=== PATIENT | male | born 1950 | race Caucasian/White ===

== ENCOUNTER → 2018-08-11 | Outpatient (CLI) | payer MEDICARE ==
[2018-08-11 14:22] LABS: Basophils # (A) 0.1 k/uL (0-0.2); Basophils % (A) 1 %; Eosinophils # (A) 0.2 k/uL (0-0.7); Eosinophils % (A) 3 %; HCT 47.6 % (39.0-53.0); HGB 16.1 gm/dL (13.0-17.5); Lymphocytes # (A) 1.8 k/uL (1.0-4.8); Lymphocytes % (A) 20 %; MCH 27.7 pg (25.0-35.0); MCHC 33.9 g/dL (31.0-37.0); MCV 81.7 fL (80.0-100.0); Monocytes # (A) 0.5 k/uL (0-1.0); Monocytes % (A) 5 %; Neutrophils # (A) 6.4 k/uL (1.3-7.7); Neutrophils % (A) 70 %; Platelet Count 358 k/uL (150-450); RBC 5.82 m/uL (4.30-5.90); RDW 14.3 % (11.5-15.5); WBC 9.2 k/uL (3.8-10.6)
--- NOTE | 2018-08-11 14:22 | XR ---
EXAMINATION TYPE: XR chest 2V DATE OF EXAM: 08/11/2018 COMPARISON: NONE HISTORY: Preadmission testing, presurgical TECHNIQUE: Frontal and lateral views of the chest are obtained. FINDINGS: There is no focal air space opacity, pleural effusion, or pneumothorax seen. The cardiac silhouette size is within normal limits. Thoracic spondylosis is noted. Prominent lung volume may be indicative of underlying COPD. The osseous structures are intact. IMPRESSION: No acute cardiopulmonary process.
[2018-08-11 14:27] LABS: Appearance,Urine Clear (Clear); Bacteria,Urine Rare /hpf; Bilirubin,Urine Negative (Negative); Blood,Urine Moderate (Negative); Color,Urine Yellow; Glucose,Urine (UA) Negative (Negative); Hyaline Casts,Urine 6 /lpf (0-2); Ketones,Urine Negative (Negative); Leukocyte Esterase,Urine Negative (Negative); Mucus,Urine Rare /hpf; Nitrite,Urine Negative (Negative); Protein,Urine Negative (Negative); RBC,Urine 22 /hpf (0-5); Specific Gravity,Urine 1.018 (1.001-1.035); Squamous Epithelial Cell,Urine 3 /hpf (0-4); Urobilinogen,Urine <2.0 mg/dL (<2.0); WBC,Urine 7 /hpf (0-5)
[2018-08-11 14:41] LABS: Calcium 10.3 mg/dL (8.4-10.2); Potassium 5.5 mmol/L (3.5-5.1)
== END | disposition home or self-care (01) ==
LOC: LABPAT 11:42
PROVIDERS: ATTEND Anesthesiology
DX: Z01.818 Encounter for other preprocedural examination (principal); Z01.812 Encounter for preprocedural laboratory examination; N20.0 Calculus of kidney; R31.29 Other microscopic hematuria
CPT/HCPCS: 71046; 80048; 81001; 85025; 87086; 93005

== ENCOUNTER 2018-08-20 07:33 | Day surgery (SDC) | payer BC, MEDICARE ==
--- NOTE | 2018-08-19 12:22 | P.GSHP ---
History of Present Illness H&P Date: 08/19/18 67y o male with a large, 2.5 cm left renal pelvic stone with pain who comes for a left pcnl Risks complicztions and alternatives have been discussed. - Constitutional Constitutional: Denies chills, Denies fever - EENT Eyes: denies blurred vision, denies pain Ears, nose, mouth and throat: Denies headache, Denies sore throat - Cardiovascular Cardiovascular: Denies chest pain, Denies shortness of breath - Respiratory Respiratory: Denies cough, Denies 7 - Gastrointestinal Gastrointestinal: Denies abdominal pain, Denies diarrhea, Denies nausea, Denies vomiting - Genitourinary (Female) Genitourinary: Denies dysuria, Denies hematuria - Genitourinary (Male) Genitourinary: Denies dysuria, Denies hematuria - Musculoskeletal Musculoskeletal: Denies myalgias - Integumentary Integumentary: Denies pruritus, Denies rash - Neurological Neurological: Denies numbness, Denies weakness - Psychiatric Psychiatric: Denies anxiety, Denies depression - Endocrine Endocrine: Denies fatigue, Denies weight change Past Medical History Past Medical History: Renal Disease Additional Past Medical History / Comment(s): kidney stones, neuropathy feet History of Any Multi-Drug Resistant Organisms: None Reported MDRO Source:: nose Past Surgical History: Hernia Repair Additional Past Surgical History / Comment(s): 1- hernia repair with mesh, 2 & 3 hernia repair without mesh and then repaired again. Past Anesthesia/Blood Transfusion Reactions: No Reported Reaction Smoking Status: Former smoker - Past Family History Father Family Medical History: Cancer Additional Family Medical History / Comment(s): lung Mother Family Medical History: Cancer Additional Family Medical History / Comment(s): lung Brother(s) Family Medical History: Cancer Additional Family Medical History / Comment(s): lung Medications and Allergies Home Medications Medication Instructions Recorded Confirmed Type Ibuprofen [Motrin] 800 mg PO TID 08/08/18 08/08/18 History Allergies Allergy/AdvReac Type Severity Reaction Status Date / Time No Known Allergies Allergy Verified 08/08/18 09:14 Surgical - Exam - General well developed, well nourished, no distress - Eyes PERRL - ENT no hearing loss - Neck trachea midline - Respiratory normal expansion, normal respiratory effort - Cardiovascular Rhythm: regular - Abdomen Abdomen: soft, non tender - Genitourinary normal penis with no external lesions, testicles present - Integumentary no rash, no growths - Neurologic normal coordination, normal sensation - Musculoskeletal normal gait, normal posture - Psychiatric oriented to time, oriented to person, oriented to place, speech is normal, memory intact Results - Imaging CT scan - abdomen: report reviewed, image reviewed CT scan - pelvis: report reviewed, image reviewed Assessment and Plan Assessment: Impression: Left renal stone large, small as right renal stone Plan: PCNL left large
[~2018-08-20 07:33] MED LIST: LIDOCAINE 1% 20 ML VIAL (10MG/ML) FOR IV START INTRADERMA PRN; ONDANSETRON 4 MG/2 ML VIAL IVP ONE; ceFAZolin IN SWFI 2 GM/20 ML SYRINGE IVP ONE
--- NOTE | 2018-08-20 08:16 | XR ---
EXAMINATION TYPE: XR KUB DATE OF EXAM: 08/20/2018 8:08 AM CLINICAL HISTORY: Presurgical study. TECHNIQUE: Two Upright KUB images of the abdomen are obtained. COMPARISON: IVP May 31, 2010. FINDINGS: There are 2 large left renal calculi measuring up to 23 mm long axis likely within left doris al pelvis due to medial location. There are 2-3 right-sided renal calculi measuring up to 10 mm long axis. Numerous coils ventral wall hernia repair surgery are redemonstrated extending over the pelvis. There is multilevel spurring in the spine. There is overall nonobstructive bowel gas pattern. There is mod erate narrowing and acetabular spurring in both hips. IMPRESSION: Bilateral nephrolithiasis as detailed above.
[2018-08-20] MEDS: LACTATED RINGERS 1,000 ML IV SCH (08:20)
[2018-08-20] MEDS ORDERED: fentaNYL (PF) 50 MCG/ML 2 ML AMP ONE (09:18)
[2018-08-20] MEDS ORDERED: MIDAZOLAM 2 MG/2 ML VIAL ONE (09:18)
[2018-08-20] MEDS ORDERED: PROPOFOL 10 MG/ML 20 ML VIAL IV ONE (09:18)
[2018-08-20] MEDS ORDERED: PHENYLEPHRINE-0.9% NACL SYG 1 MG/10 ML SYRINGE ONE (09:18)
[2018-08-20] MEDS ORDERED: LIDOCAINE 1% INJ 10MG/ML (20 ML MDV) ONE (09:18)
[2018-08-20] MEDS ORDERED: ROCURONIUM BROMIDE 10 MG/ML 10 ML VIAL IV ONE (09:18)
[2018-08-20] MEDS ORDERED: IOPAMIDOL-370 50ML BTL IRRIGATION ONE (10:14)
[2018-08-20] MEDS ORDERED: LACTATED RINGERS 1,000 ML IV ONE (11:10)
[2018-08-20] MEDS ORDERED: ACETAMINOPHEN TAB 325 MG TAB PO PRN (11:16)
[2018-08-20] MEDS ORDERED: MAG HYDROX/AL HYDROX/SIMETH 30 ML CUP PO PRN (11:16)
[2018-08-20] MEDS ORDERED: ONDANSETRON 4 MG/2 ML VIAL IVP PRN (11:16)
[2018-08-20] MEDS ORDERED: NALOXONE 0.4 MG/ML 1 ML VIAL IV PRN (11:18)
[2018-08-20] MEDS ORDERED: HYDROMORPHONE (PF) 10 MG in SODIUM CHLORIDE 0.9% 49 ML IV PRN (11:18)
--- NOTE | 2018-08-20 11:27 | P.OP ---
Date of Procedure: 08/20/18 Preoperative Diagnosis: left renal stones, large Postoperative Diagnosis: same Procedure(s) Performed: cystoscopy, placement of occluding balloon catheter left, percutaneous nephrostomy (Dr. costa), percutaneous nephrostolithotomy at ultrasound, placement of 10 J nephrostomy Anesthesia: CASSANDRA Surgeon: Santiago Pena Estimated Blood Loss (ml): 100 Pathology: other Condition: stable Disposition: PACU Indications for Procedure: the patient is 67. He has a large volume of kidney stones in the left renal pelvis 2.1 cm and 12 mm. He comes for percutaneous nephrostolithotomy risk complications alternatives have been discussed Description of Procedure: the patient is brought to the operating suite. He is given a general endotracheal anesthesia on the transport gurney. Rolls were placed under his hips. He's placed in a frog position with a sterile prep and drape. Cystoscopy a Foroblique lens and 22-Bermudian sheath identifies a normal urethra. Prostate is not obstructing. The left ureteral orifice is intubated with a 5-Bermudian occluding balloon catheter passed up into the renal pelvis. The cystoscope was removed. A 16 Zepeda catheters introduced and secured to the ureteral catheter. The patient is placed in a prone position with care to airways and extremities. He is prepped and draped sterilely. Dr. Costa of radiology performed percutaneous access to a lower pole posterior calyx. The track is dilated to 30-Bermudian. I introduced a 30-Bermudian working sheath. I remove clot with the rigid endoscope and identify the smaller the 2 stones. He is broken into 2 pieces with the ultrasound wand and the pieces were grasped and removed. She has a bifid pelvis and in the eventually able to see the tip of the stone up in the upper portion of the renal pelvis. I slowly am able to grind on this and eventually pull it down in the lower portion of the renal pelvis. I grind and remove her basket the larger fragments . the stone appears to be removed as visually apparent and fluoroscopically apparent. I passed the flexible cystoscope through the collecting system and see no remaining stone. Over the working wire a 10-Bermudian J nephrostomy tube was placed in the renal pelvis. It is secured to the skin with 2-0 silk. The working sheath is removed. The patient is awake and returned recovery room good condition. Blood loss is approximately 100 mL. Due to pain and blood loss issues I will observe the patient in the hospital overnight
[2018-08-20] MEDS: HYDROmorphone 0.5 MG/0.5 ML SYRINGE IVP PRN ×4 (11:34→11:58)
[2018-08-20 12:31] VITALS: BMI 31.8
[2018-08-20] MEDS: DEXTROSE 5%-0.45% NACL 1,000 ML IV SCH ×2 (12:44→21:04)
--- NOTE | 2018-08-20 12:45 | FL ---
EXAMINATION TYPE: FL Perc Nephrostomy Dilat Ext Tract DATE OF EXAM: 08/20/2018 COMPARISON: NONE HISTORY: Renal stone Procedure had been discussed with the patient by Dr. Pena, risks, benefits, alternatives, were discussed and any questions were answered. Informed consent was obtained. The patient was in a semiprone position prepped and draped on the OR table in the usual sterile fashion. Utilizing a 15 cm length Chiba needle a single pass was made into a lower pole posterior calyx under fluoroscopic guidance. An 0.018 guidewire is passed through the needle and there was placement of a 6-Slovenian catheter sheath system. There was conversion to a 0.035 system was performed with passage of a guidewire into the ureter utilizing a directional catheter. A second safety wire was placed. Remaining portion of procedure performed by . Approximately 1 minute 59 seconds of fluoroscopy was provided. One image provided. IMPRESSION: 1. Successful intraoperative left nephrostomy prior to nephrolithotomy. ZANDRA
[2018-08-20] MEDS: HYDROcodone/APAP 5-325MG 1 EACH TAB PO PRN (17:51)
[2018-08-21] MEDS: HYDROcodone/APAP 5-325MG 1 EACH TAB PO PRN ×2 (04:58→14:38)
[2018-08-21] MEDS: DEXTROSE 5%-0.45% NACL 1,000 ML IV SCH ×2 (05:03→14:39)
[2018-08-21] MEDS: LACTATED RINGERS 1,000 ML IV SCH (06:17)
--- NOTE | 2018-08-21 06:41 | P.PN ---
Subjective Progress Note Date: 08/21/18 The patient is in his first postoperative day from a left percutaneous nephrostolithotomy. He had a lot of pain overnight and continue with some discomfort. His urine is clear in the Zepeda. There is some blood and little drainage from the nephrostomy tube. His abdomen was soft but there is some discomfort. Due to the persistent pain we will probably observe him again today. He is encouraged to ambulate and continue with deep breathing. Objective - Vital Signs Vital signs: Vital Signs Temp 98.5 F 08/21/18 02:16 Pulse 86 08/21/18 02:16 Resp 20 08/21/18 02:16 BP 134/84 08/21/18 02:16 Pulse Ox 96 08/21/18 02:16 Intake & Output 08/20/18 08/20/18 08/21/18 06:59 18:59 06:59 Intake Total 1300 600 Output Total 980 650 Balance 320 -50 Intake: IV 1300 Oral 600 Output: Drainage 0 Left Lower Back 0 Urine 950 650 Estimated Blood Loss 30 Other: Voiding Method Indwelling Catheter Indwelling Catheter # Voids 3 1 - Labs CBC & Chem 7: 08/20/18 08:25
[2018-08-21 13:13] VITALS: RESP 18
[2018-08-21] MEDS: DOCUSATE 100 MG CAP PO SCH (21:58)
[2018-08-22 00:27] VITALS: PULSE 89
--- NOTE | 2018-08-22 07:09 | P.DS ---
Providers Attending physician: Santiago Pena Primary care physician: [place] Hospital Course: The patient was brought to the hospital on 08/20/2018 for left percutaneous nephrostolithotomy. The stone was removed completely. In 08/21/2018 he was still having too much pain to be discharged home. Pain improved. The nephrostomy tube is now draining appropriately. He is voiding without difficulty. He is ready for discharge home today 08/22/2018. He'll be discharged home with the nephrostomy tube. He'll follow-up in the office on Saturday for nephrostomy tube removal. A small prescription of [place] will be given. Postoperative instructions of been given. He'll be instructed in catheter care. His condition is good. Patient Condition at Discharge: Good Plan - Discharge Summary Discharge Rx Participant: No New Discharge Prescriptions: New HYDROcodone/APAP 5-325MG [Berwick 5-325] 1 tab PO Q4HR PRN #10 tab PRN Reason: Pain No Action Ibuprofen [Motrin] 800 mg PO TID HYDROcodone/APAP 5-325MG [[place] 5-325] 1 tab PO TID PRN PRN Reason: Pain Discharge Medication List Ibuprofen [Motrin] 800 mg PO TID 08/08/18 [History] HYDROcodone/APAP 5-325MG [[place]wick 5-325] 1 tab PO TID PRN 08/20/18 [History] HYDROcodone/APAP 5-325MG [Berwick 5-325] 1 tab PO Q4HR PRN #10 tab 08/22/18 [Rx] Follow up Appointment(s)/Referral(s): Santiago Pena MD [STAFF PHYSICIAN] - 09/01/18 (for nephrostomy tube removal) Discharge Disposition: HOME SELF-CARE
[2018-08-22] MEDS: DEXTROSE 5%-0.45% NACL 1,000 ML IV SCH (07:31)
[2018-08-22] MEDS: DOCUSATE 100 MG CAP PO SCH (07:35)
[2018-08-22 07:53] VITALS: BP 136/78; TEMP 98.7
[2018-08-22] MEDS: HYDROcodone/APAP 5-325MG 1 EACH TAB PO PRN (08:04)
== END 2018-08-22 11:05 | disposition home or self-care (01) ==
LOC: OR 07:33 → EDSTATUS 09:00 → 4SSUR 11:02 → OR 08-22 11:05
PROVIDERS: ATTEND Urology
DX: N20.0 Calculus of kidney (principal); Z79.1 Long term (current) use of non-steroidal anti-inflammatories (NSAID); Z79.891 Long term (current) use of opiate analgesic; G89.18 Other acute postprocedural pain
CPT/HCPCS: 52344; 50437; 84132; 82365; 74018; C1769 ×4; C2628; C1729 ×2; C1894; J2250; J2405; J2001; J3010; J2370; J2704; J1170 ×2; J0690; Q9967; 50432; 86850; 86900; 86901

== ENCOUNTER → 2019-01-28 | Outpatient (CLI) | payer MEDICARE ==
--- NOTE | 2019-01-28 15:14 | XR ---
KUB HISTORY: Right-sided kidney stones Frontal KUB submitted on 2 images correlated prior exam 08/20/2018 The calcifications overlying the left kidney are no longer seen. Right-sided kidney stones persists, lower pole calculus measures 11 mm, midpole calculus measures 1 cm. There are overlying surgical coil s present. Overlying bowel gas may obscure detail. No evident pneumoperitoneum or bowel obstruction. Calcification in the right hemipelvis is stable. There may be some ankylosis of the sacroiliac joints , degenerative disc changes are present in the visualized spine. IMPRESSION: Right-sided nephrolithiasis.
== END | disposition home or self-care (01) ==
LOC: RADXRMAIN 12:01
PROVIDERS: ATTEND Urology
DX: N20.0 Calculus of kidney (principal)
CPT/HCPCS: 74018

== ENCOUNTER → 2019-03-18 | Outpatient (CLI) | payer MEDICARE ==
--- NOTE | 2019-03-18 15:49 | XR ---
EXAMINATION TYPE: XR KUB DATE OF EXAM: 03/18/2019 3:43 PM CLINICAL HISTORY: Right-sided nephrolithiasis. TECHNIQUE: Single supine KUB image of the abdomen is obtained. COMPARISON: 01/28/2019. FINDINGS: The previously seen 1.1 cm and 1.0 cm renal calculi are no longer evident. There are puncta te possible calculi (up to 4 in number) overlying the right renal shadow however colonic debris obscu res visualization. Punctate densities could be within the colonic lumen. Evidence of prior hernia rep air. No dilated large or small bowel. Moderate degenerative change of the spine and hips. No new calc ifications in the pelvis. IMPRESSION: 1. The previously seen 1.0 and 1.1 cm right renal calculi are no longer present. Up to 4 possible pun ctate right renal calculi, obscured by colonic debris. 2. No new calculi within the pelvis or overlying the left renal shadow.
--- NOTE | 2019-03-19 07:16 | US ---
EXAMINATION TYPE: US kidneys/renal and bladder DATE OF EXAM: 03/18/2019 COMPARISON: NONE CLINICAL HISTORY: N20.0 Calculus of kidney. Hx of kidney stones. EXAM MEASUREMENTS: Right Kidney: 10.6 x 4.8 x 4.7 cm Left Kidney: 11.4 x 4.6 x 3.9 cm Right Kidney: Echogenic foci seen without shadowing. Left Kidney: No hydronephrosis or masses seen Bladder: Not fully distended. Bilateral Jets seen: Yes There is no evidence for hydronephrosis at this point in time. No masses are identified. The urinary bladder is anechoic. Bilateral ureteral jets are seen. IMPRESSION: Nonobstructing right-sided nephrolithiasis. Otherwise unremarkable study.
== END | disposition home or self-care (01) ==
LOC: RADUSWWP 15:21
PROVIDERS: ATTEND Urology
DX: N20.0 Calculus of kidney (principal)
CPT/HCPCS: 74018; 76770

== ENCOUNTER → 2019-05-14 | Outpatient (CLI) | payer MEDICARE ==
--- NOTE | 2019-05-14 12:51 | XR ---
EXAMINATION TYPE: XR abdomen 1V DATE OF EXAM: 05/14/2019 12:27 PM CLINICAL HISTORY: Nephrolithiasis TECHNIQUE: Single supine KUB image of the abdomen is obtained. COMPARISON: 03/18/2019. FINDINGS: Questionable calculi overlie the expected lower pole of the right kidney. Kidneys are partially obscu red by bowel. No calculi that are radiopaque are seen on the left. Ventral hernia repair has been per formed. Moderate degenerative change of the spine and hips. Stable phleboliths within the pelvis at t he right ischial spine. No dilated large or small bowel IMPRESSION: No new calculi are seen radiographically. Stable phlebolith within the right hemipelvis a nd subtle possible punctate calculi overlying the right renal shadow.
== END | disposition home or self-care (01) ==
LOC: RADXRMAIN 11:44
PROVIDERS: ATTEND Urology
DX: I87.8 Other specified disorders of veins (principal)
CPT/HCPCS: 74018

== ENCOUNTER → 2020-02-02 | Outpatient (CLI) | payer MEDICARE ==
[2020-02-02 16:28] LABS: African American GFR (CKD) >90 (>60 ml/min/1.73 sqM); Blood Urea Nitrogen 19 mg/dL (9-20); Non-African American GFR(CKD) 89 (>60 ml/min/1.73 sqM)
--- NOTE | 2020-02-02 21:40 | CT ---
EXAMINATION TYPE: CT abdomen pelvis w con DATE OF EXAM: 02/02/2020 COMPARISON: None. HISTORY: Fatty liver, AAA CT DLP: 1994.7 mGycm, Automated Exposure Control for Dose Reduction was Utilized. CONTRAST: CT scan of the abdomen and pelvis is performed with oral and with IV Contrast, patient injected with 100 mL of Isovue 300. FINDINGS: LUNG BASES: No significant abnormality is appreciated. LIVER/GB: Liver is heterogeneously hypodense consistent with diffuse fatty infiltration. There is 1.2 cm hyperdense round lesion anterior left hepatic lobe with surrounding hypodensity. Etiology uncerta in. Favor benign, Possible flash filling hemangioma. PANCREAS: No significant abnormality is seen. SPLEEN: No significant abnormality is seen. ADRENALS: No significant abnormality is seen. KIDNEYS: Symmetric cortical medullary uptake and excretion without hydronephrosis seen bilaterally. BOWEL: Oral contrast reaches level of the mid ileum. No suspicious small or large bowel dilatation. N ormal-appearing appendix arising from cecum in the right lower quadrant and upper pelvis. Diverticula in the sigmoid colon of the left pelvis. No CT evidence for acute diverticulitis. PROSTATE/SEMINAL VESICLES: Mildly enlarged prostate gland bulging on bladder base consistent with BPH . LYMPH NODES: No greater than 1cm abdominal or pelvic lymph nodes are appreciated. OSSEOUS STRUCTURES: Moderate multilevel anterior and lateral spurring of the visualized spine. Multil evel facet arthropathy mid to lower lumbar spine. OTHER: Surgical coils anterior left pelvis from prior inguinal hernia repair surgery. Recurrent ingui nal hernia. Additional coils from ventral hernia repair surgery or level of the umbilicus. No recurre nt ventral wall hernia. There is moderate peripheral noncalcified plaque in the abdominal aorta which is aneurysmal measuring up to 5.2 cm AP diameter axial image 34 x 4.6 cm transversely at this level. Slight focal aneurysm t o distal left common iliac artery up to 2.5 cm diameter axial image 48. IMPRESSION: 1. Moderate peripheral noncalcified plaque in aneurysmal abdominal aorta measuring up to 5.2 cm AP di ameter. At minimum 3-6 month follow-up imaging monitoring is advised. 2. Confirmation of diffuse fatty infiltration of liver. Nonspecific 1.2 cm left hepatic hypodense les ion favoring benign flash filling hemangioma.
== END | disposition home or self-care (01) ==
LOC: RADCTMAIN 15:49
PROVIDERS: ATTEND Family Medicine
DX: I71.4 Abdominal aortic aneurysm, without rupture (principal); K76.0 Fatty (change of) liver, not elsewhere classified
CPT/HCPCS: 82565; 84520; 74177; 36415; Q9967

== ENCOUNTER → 2020-12-14 | Outpatient (CLI) | payer MEDICARE ==
[2020-12-14 17:17] LABS: African American GFR (CKD) >90 (>60 ml/min/1.73 sqM); Blood Urea Nitrogen 23 mg/dL (9-20); Non-African American GFR(CKD) 87 (>60 ml/min/1.73 sqM)
--- NOTE | 2020-12-15 06:29 | CT ---
EXAMINATION TYPE: CT abdomen pelvis w con DATE OF EXAM: 12/14/2020 COMPARISON: CT abdomen and pelvis February 02, 2020 HISTORY: aortic aneurysm CT DLP: 1724 mGycm, Automated Exposure Control for Dose Reduction was Utilized. CONTRAST: CT scan of the abdomen and pelvis is performed with oral and with IV Contrast, patient injected with 100 mL of Isovue 300. FINDINGS: LUNG BASES: No significant abnormality is appreciated. LIVER/GB: Liver is heterogeneously hypodense consistent with diffuse fatty infiltration. There is 1.2 cm hyperdense round lesion anterior left hepatic lobe with surrounding hypodensity. Etiology uncerta in. Favor benign, Possible flash filling hemangioma. No significant change from prior. PANCREAS: Mild to moderate generalized atrophy at level of pancreatic head redemonstrated. SPLEEN: No significant abnormality is seen. ADRENALS: No significant abnormality is seen. KIDNEYS: Symmetric cortical medullary uptake and excretion without hydronephrosis seen bilaterally. S ome cortical thinning bilaterally redemonstrated. BOWEL: Oral contrast does not reach level of terminal ileum making evaluation of distal bowel subopti mal. No suspicious small or large bowel dilatation. Normal-appearing appendix arising from cecum in t he right lower quadrant and upper pelvis. Diverticula in the sigmoid colon of the left pelvis. Mild t o moderate ill-defined fluid and fat stranding at this level suspicious for acute diverticulitis near axial image 67. PROSTATE/SEMINAL VESICLES: Mildly enlarged prostate gland bulging on bladder base consistent with BPH . LYMPH NODES: No greater than 1cm abdominal or pelvic lymph nodes are appreciated. OSSEOUS STRUCTURES: Moderate multilevel anterior and lateral spurring of the visualized spine. Multil evel facet arthropathy mid to lower lumbar spine. OTHER: Surgical coils anterior left pelvis from prior inguinal hernia repair surgery. Stable small fa t-containing right inguinal hernia. Additional coils from ventral hernia repair surgery near level of the umbilicus. No recurrent ventral wall hernia. There is moderate peripheral noncalcified plaque in the abdominal aorta which is aneurysmal measuring up to 5.3 cm AP diameter axial image 35 x 4.9 cm transversely at this level. Slight focal aneurysm t o distal left common iliac artery up to 2 0.4 cm diameter axial image 50. IMPRESSION: 1. Moderate peripheral noncalcified plaque in aneurysmal abdominal aorta measuring up to 5.3 cm AP di ameter. No significant interval progression accounting for technical differences. 2. Redemonstration of diffuse fatty infiltration of liver. Nonspecific 1.2 cm left hepatic hypodense lesion favoring benign flash filling hemangioma is stable. 3. Acute uncomplicated diverticulitis sigmoid colon in the pelvis just left of midline felt present o n current study. Correlate clinically.
== END | disposition home or self-care (01) ==
LOC: RADCTMAIN 16:13
PROVIDERS: ATTEND Family Medicine
DX: K57.32 Diverticulitis of large intestine without perforation or abscess without bleeding (principal); I71.4 Abdominal aortic aneurysm, without rupture
CPT/HCPCS: 82565; 84520; 74177; 36415; Q9967

== ENCOUNTER → 2023-03-27 | Outpatient (CLI) | payer MEDICARE ==
[2023-03-27 11:27] LABS: African American GFR (CKD) >90 (>60 ml/min/1.73 sqM); Blood Urea Nitrogen 21 mg/dL (9-20); Non-African American GFR(CKD) 88 (>60 ml/min/1.73 sqM)
--- NOTE | 2023-03-27 13:12 | CTL ---
EXAMINATION TYPE: CT Low Dose Lung DATE OF EXAM: 03/27/2023 12:22 PM CLINICAL INDICATION:Male, 72 years old with history of I71.4 AAA WO RUPTURE; , history of tobacco use . COMPARISON: None. TECHNIQUE: Multiple axial non-contrast scans were obtained from approximately the lung apices through the upper abdomen. Coronal and sagittal reformatted images were obtained. Low dose technique was uti lized. CT DLP: mGycm, Automated exposure control for dose reduction was used. CT Contrast: Contrast used: None Oral contrast used: None FINDINGS: ======== Lack of intravenous contrast and low dose technique limits the evaluation of the vascular and soft ti ssue structures.. LUNGS: No evidence of pulmonary fibrosis. No evidence of focal consolidation, pneumothorax or pleural effusion. Nodules: Centrilobular emphysema changes scattered throughout the lungs RUL: None. RML: None. RLL: None. MARYCARMEN: None. LLL: None. AIRWAY: Patent and unremarkable. HEART: Size within normal limits. Mild scattered calcified coronary artery atherosclerosis. MEDIASTINUM: No gross evidence of adenopathy. VASCULATURE: No aortic aneurysm. Ascending thoracic aorta ectasia up to 4.0 cm. MUSCULOSKELETAL: Mild disc degeneration changes are present throughout the thoracolumbar spine. SOFT TISSUES/LYMPH NODES: Unremarkable. LOWER NECK: No significant findings. UPPER ABDOMEN: No significant findings. IMPRESSION: 1. No pulmonary nodules. 2. No evidence for aortic aneurysm. Ascending thoracic aorta ectasia up to 4.[address] LUNG RAD AND CT CHEST RECOMMENDATION: Lung-Rad 1 Negative: Continue annual screening with LDCT in 12 months. S Modifier (other clinically significant findings): None Recommend smoking cessation (if current smoker), or continuation of smoking cessation (if prior smoke r). Annual screening for lung cancer with low-dose computed tomography is recommended in adults ages 55 to 77 years who have a 30 pack-year smoking history and currently smoke or have quit within the pa st 15 years. Screening should be discontinued once a person has not smoked for 15 years or develops a health problem that substantially limits life expectancy or the ability or willingness to have curat gio lung surgery. Lung rads 2021 [email or web address]
--- NOTE | 2023-03-27 13:18 | CT ---
EXAMINATION TYPE: CT abdomen pelvis w con CT DLP: 1543 mGycm, Automated exposure control for dose reduction was used. DATE OF EXAM: 03/27/2023 12:22 PM COMPARISON: CT abdomen pelvis most recent from 12/14/2020. CLINICAL INDICATION:Male, 72 years old with history of I71.4 AAA WO RUPTURE; TECHNIQUE: Axial CT of the ;CT abdomen pelvis w con;Sagittal and coronal reformats were created on a separate workstation. Contrast used:100 cc of Isovue-300. Oral contrast used: None. FINDINGS: LOWER CHEST: Unremarkable ABDOMEN LIVER: Unremarkable GALLBLADDER AND BILE DUCTS: Unremarkable. PANCREAS: Unremarkable. SPLEEN: Unremarkable. ADRENAL GLANDS: Unremarkable. KIDNEYS AND URETERS: Multiple nonobstructing calculi bilaterally measuring up tor 7 mm on the right a nd 3 mm on the left. PELVIS BLADDER: Unremarkable REPRODUCTIVE: Prostate is enlarged in size measuring 4.5 cm in transverse dimension. ABDOMEN & PELVIS STOMACH AND BOWEL: No evidence of bowel obstruction. Scattered colonic diverticula. Kofi. The append ix is normal. Mild inflammation changes are seen around the sigmoid colon PERITONEUM/RETROPERITONEUM: No evidence of pneumoperitoneum or free fluid. VASCULATURE: Infrarenal abdominal fusiform aneurysmal dilation up tor 5.7 x 5.5 cm with mural thrombu s. Dilation of the common iliac artery and the left up to 2.4 cm. MUSCULOSKELETAL: No acute osseous abnormalities. Mild disc degeneration changes are present throughou t the thoracolumbar spine. Degeneration changes of the hips with joint space narrowing osteophyte for mation. LYMPH NODES: No gross evidence for lymphadenopathy. SOFT TISSUE/ABDOMINAL WALL: Right fat-containing inguinal hernia. Surgical clips are in the left ingu inal. IMPRESSION: 1. Infrarenal abdominal aortic fusiform dilation up to 5.7 cm. Vascular surgery consultation recomme nded. 2. Mild inflammation of the sigmoid colon correlate for diverticulitis/colitis. 3. Colonic diverticulosis. 4. Prostatomegaly, correlate with serum PSA. 5. Right fat containing inguinal hernia. 6. Nonobstructing bilateral renal calculi. 7. Left surgical clips possibly relating to prior inguinal hernia repair other intervention.
== END | disposition home or self-care (01) ==
LOC: RADCTMAIN 10:35
PROVIDERS: ATTEND Family Medicine
DX: Z12.2 Encounter for screening for malignant neoplasm of respiratory organs (principal); I77.810 Thoracic aortic ectasia; K57.30 Diverticulosis of large intestine without perforation or abscess without bleeding; N20.0 Calculus of kidney; N40.0 Benign prostatic hyperplasia without lower urinary tract symptoms; K40.90 Unilateral inguinal hernia, without obstruction or gangrene, not specified as recurrent; Z87.891 Personal history of nicotine dependence
CPT/HCPCS: 82565; 84520; 74177; 36415; 71271; Q9967

== ENCOUNTER 2023-12-06 09:36 | Inpatient (IN) | payer MEDICARE ==
[~2023-12-06 09:36] MED LIST changes: +LIDOCAINE 1% (10MG/ML) FOR IV START INTRADERMA PRN; -LIDOCAINE 1% 20 ML VIAL (10MG/ML) FOR IV START INTRADERMA PRN; -ONDANSETRON 4 MG/2 ML VIAL IVP ONE; +ceFAZolin 1 GM in SODIUM CHLORIDE 0.9% 250 ML IRRIGATION PRN; -ceFAZolin IN SWFI 2 GM/20 ML SYRINGE IVP ONE
[2023-12-06] MEDS: SODIUM CHLORIDE 0.9% 1,000 ML in EMPTY BAG 1 BAG IV ONE (10:20)
[2023-12-06] MEDS: IV FLUID CONTINUATION 1,000 ML IV ONE (10:20)
[2023-12-06 10:31] LABS: Glucose,Whole Blood 122 mg/dL (70-110)
[2023-12-06] MEDS: MIDAZOLAM 2 MG/2 ML VIAL IV ONE (10:50)
[2023-12-06 10:57] LABS: ALT 15 U/L (4-49); AST 24 U/L (17-59); African American GFR (CKD) >90 (>60 ml/min/1.73 sqM); Albumin 4.2 g/dL (3.5-5.0); Alkaline Phosphatase 53 U/L (38-126); Anion Gap 8 mmol/L; Blood Urea Nitrogen 32 mg/dL (9-20); Calcium 9.4 mg/dL (8.4-10.2); Carbon Dioxide 25 mmol/L (22-30); Chloride 106 mmol/L (98-107); Glucose 126 mg/dL (74-99); Non-African American GFR(CKD) >90 (>60 ml/min/1.73 sqM); Potassium 3.9 mmol/L (3.5-5.1); Sodium 139 mmol/L (137-145); Total Bilirubin 0.6 mg/dL (0.2-1.3)
[2023-12-06] MEDS ORDERED: HEPARIN SODIUM,PORCINE 30 ML 30 ML ONE (11:04)
[2023-12-06] MEDS ORDERED: ROCURONIUM 10 MG/ML (5 ML VIAL) IV ONE (11:21)
[2023-12-06] MEDS ORDERED: GLYCOPYRROLATE 0.2 MG/ML 2 ML VIAL ONE (11:21)
[2023-12-06] MEDS ORDERED: PROPOFOL 10 MG/ML 20 ML VIAL IV ONE (11:21)
[2023-12-06] MEDS ORDERED: PHENYLEPHRINE 10 MG/ML VIAL ONE (11:21)
[2023-12-06] MEDS ORDERED: fentaNYL (PF) 50 MCG/ML 2 ML AMP ONE (11:21)
[2023-12-06] MEDS ORDERED: HEPARIN SODIUM,PORCINE 10,000 UNIT/ML 1 ML VIAL ONE (11:21)
[2023-12-06] MEDS ORDERED: MIDAZOLAM 2 MG/2 ML VIAL ONE (11:21)
[2023-12-06] MEDS ORDERED: SUCCINYLCHOLINE CHLORIDE 200 MG/10 ML VIAL IV ONE (11:21)
[2023-12-06] MEDS ORDERED: NEOSTIGMINE 1 MG/ML 10 ML VIAL ONE (11:21)
[2023-12-06] MEDS: IOPAMIDOL-370 100ML BTL INJ ONE (13:03)
[2023-12-06] MEDS ORDERED: NALOXONE 0.4 MG/ML 10 ML VIAL IVP PRN (13:19)
--- NOTE | 2023-12-06 13:19 | P.OP ---
Description of Procedure: Date: 12/06/2023 Preoperative diagnosis: Asymptomatic Infrarenal 5.8 cm AAA Postoperative diagnosis: Same Procedure: 1. Percutaneous Endovascular aortic repair with [place] device. 2. Ultrasound-guided bilateral common femoral artery access Surgeon: Barak GUY Anesthesia: General Estimated blood loss: 10 mL Complications: none Condition: stable Disposition: palpable DP and PT pulse Indications: 73-year-old gentleman with history of AAA with recent CTA measuring 5.8 cm presents to the hospital for elective endovascular aortic repair. Operative narrative: After written and informed consent was obtained from the patient all risks benefits and complications were described the patient was brought to the [facility] and laid in a supine position. The area of the groins were prepped and draped in usual sterile fashion after appropriate anesthetic was performed per the anesthesiologist. A timeout was performed in normal fashion and antibiotics were administered prior to incisions. Utilizing ultrasound bilateral common femoral arteries were visualized demonstrating patency with minimal calcification. Under ultrasound guidance utilizing a multipurpose needle bilateral common femoral arteries were accessed and guidewire was placed followed by deployment of 2 Perclose closure devices for each femoral artery. Utilizing Seldinger technique and 8-[place] sheath was then placed and patient was administered heparin and followed with ACTs. 035 Glidewire was then placed up the right femoral sheath and exchanged for a [place]under[place] wire through an angled glide catheter. The left femoral artery was then utilized and guidewire was placed followed by pigtail catheter and aortogram was obtained. Utilizing the Lunderquist wire a 29 mm main body device was then loaded over the guidewire after the 8-[place] sheath was removed. Delivery system was then placed 1 cm proximal to the intended landing site and the aortic body was oriented for appropriate access for the contralateral limb. Delivery system was then retracted out of the sheath and the aortic body radiopaque markers were verified to be in the correct position. First segment of the graft was then deployed in normal fashion by releasing and pulling the knob in normal fashion. Balloon injection port was then inflated utilizing a 4- 1 saline contrast mixture in order to open the mid crown. Balloon was then deflated. Precise positioning was then performed with utilizing the radiopaque markers and parallax was removed and our to land at the renal arteries. Pigtail catheter was then retracted away from the proximal stent and the proximal stent was released in normal fashion. Polymer was then utilized and filled through the polymer port which was visualized under fluoroscopy. The stiff Lunderquist wire was then retracted within the ipsilateral limb. Attention was then placed to accessing the contralateral limb. Utilizing the Glidewire and angled glide catheter the contralateral limb was accessed and pigtail catheter was placed. Pigtail catheter was then spun to verify intragraft cannulation. A stiff wire was then placed within the pigtail catheter and retrograde angiogram was obtained demonstrating the internal iliac artery takeoff. Measurements were obtained and a 28 mm x 140 mm Ovation limb was chosen to be deployed and deployed in normal fashion. Once completed the aortic main body was completely deployed in normal fashion. Utilizing the balloon balloon angioplasty was performed at the ring to further mold the polymer to the aortic neck. Once completed the aortic body deployment sheath was removed in normal fashion. Pigtail catheter was then placed over the Lunderquist wire and retrograde angiogram was obtained with measurements to the internal iliac artery on the ipsilateral limb. A 22 x 140 mm Ovation limb was chosen and deployed in normal fashion. Once completed two 12 x 40mm balloons were placed up each iliac limb and balloon angioplasty was performed through its entirety. Once completed balloons were removed and pigtail catheter was placed above the graft and final angiogram was obtained demonstrating exclusion of the aneurysm with no evidence of endoleak's. All guidewires and catheters were then removed and the Perclose closure devices were closed in normal fashion. The areas were then cleansed and dressings were placed. The patient tolerated procedure well and had palpable DP and PT pulses and was sent to PACU for recovery.
[2023-12-06] MEDS: IV FLUID CONTINUATION 400 ML IV ONE (13:27)
[2023-12-06 13:51] LABS: Glucose,Whole Blood 115 mg/dL (70-110)
[2023-12-06 14:02] LABS: Basophils # (A) 0.1 k/uL (0-0.2); Basophils % (A) 1 %; Eosinophils # (A) 0.1 k/uL (0-0.7); Eosinophils % (A) 1 %; HCT 42.7 % (39.0-53.0); HGB 14.3 gm/dL (13.0-17.5); Lymphocytes # (A) 1.5 k/uL (1.0-4.8); Lymphocytes % (A) 18 %; MCH 29.8 pg (25.0-35.0); MCHC 33.6 g/dL (31.0-37.0); MCV 88.9 fL (80.0-100.0); Monocytes # (A) 0.3 k/uL (0-1.0); Monocytes % (A) 3 %; Neutrophils # (A) 6.2 k/uL (1.3-7.7); Neutrophils % (A) 75 %; Platelet Count 270 k/uL (150-450); RDW 12.7 % (11.5-15.5); WBC 8.2 k/uL (3.8-10.6)
[2023-12-06 14:42] LABS: African American GFR (CKD) >90 (>60 ml/min/1.73 sqM); Anion Gap 7 mmol/L; Blood Urea Nitrogen 27 mg/dL (9-20); Calcium 8.6 mg/dL (8.4-10.2); Carbon Dioxide 22 mmol/L (22-30); Chloride 109 mmol/L (98-107); Glucose 120 mg/dL (74-99); Non-African American GFR(CKD) >90 (>60 ml/min/1.73 sqM); Potassium 3.7 mmol/L (3.5-5.1); Sodium 138 mmol/L (137-145)
[2023-12-06] MEDS: HYDROmorphone 0.5 MG/0.5 ML SYRINGE IVP PRN (14:43)
[2023-12-06] MEDS: ONDANSETRON 4 MG/2 ML VIAL IVP ONE (16:26)
[2023-12-06] MEDS: LACTATED RINGERS 1,000 ML IV SCH (16:27)
[2023-12-06 16:44] LABS: Glucose,Whole Blood 106 mg/dL (70-110)
[2023-12-06 20:11] LABS: Glucose,Whole Blood 158 mg/dL (70-110)
[2023-12-06] MEDS: BALSALAZIDE DISODIUM 750 MG CAPSULE PO SCH (20:34)
[2023-12-07 05:48] LABS: Glucose,Whole Blood 119 mg/dL (70-110)
--- NOTE | 2023-12-07 06:57 | P.DS ---
Providers Date of admission: 12/06/23 09:50 Expected date of discharge: 12/07/23 Attending physician: Gutierrez Cancino DO Consults: 12/06/23 06:33 Consult to Anesthesia Routine Consulting Provider: Anesthesia,Services Consult Reason/Comments: General anesthesia for Aortic Stent procedure Primary care physician: Teddy Tello MD Hospital Course: Patient was admitted to the hospital on December 04 for elective repair of abdominal aortic aneurysm. The procedure was uncomplicated. Patient was stable for discharge the following morning with palpable dorsalis pedis pulses being noted bilaterally. His pain was well-controlled and he was tolerating a diet without issue. Plan - Discharge Summary Discharge Rx Participant: No New Discharge Prescriptions: No Action Losartan/Hydrochlorothiazide [Losartan-Hctz 50-12.5 mg Tab] 2 tab PO DAILY Balsalazide Disodium 3 tab PO BID Vitamin C 1 tab PO DAILY metFORMIN HCL 500 mg PO BID amLODIPine [Norvasc] 5 mg PO DAILY Vitamin D 1 dose PO DAILY Discharge Medication List Balsalazide Disodium 3 tab PO BID 12/05/23 [History] Losartan/Hydrochlorothiazide [Losartan-Hctz 50-12.5 mg Tab] 2 tab PO DAILY 12/05/23 [History] Vitamin C 1 tab PO DAILY 12/05/23 [History] Vitamin D 1 dose PO DAILY 12/05/23 [History] amLODIPine [Norvasc] 5 mg PO DAILY 12/05/23 [History] metFORMIN HCL 500 mg PO BID 12/05/23 [History] Follow up Appointment(s)/Referral(s): Gutierrez Cancino DO [STAFF PHYSICIAN] - 1 Week Activity/Diet/Wound Care/Special Instructions: 1: There are no ambulatory/physical activity restrictions from a vascular surgical standpoint. 2: Please continue your diet as at home. 3: Please follow-up with Dr. Cancino in the office in 1 to 2 weeks, as previously scheduled. 4: Please feel free to shower over your wounds beginning today. Please avoid any tub bathing/immersion in water.
--- NOTE | 2023-12-07 06:59 | P.PN ---
Subjective Progress Note Date: 12/07/23 Principal diagnosis: Status post endovascular repair abdominal aortic aneurysm. Patient had an uneventful evening. Objective - Vital Signs Vital signs: Vital Signs Temp 98.2 F 12/07/23 04:00 Pulse 68 12/07/23 04:00 Resp 19 12/07/23 04:00 BP 109/58 12/07/23 04:00 Pulse Ox 93 L 12/07/23 04:00 FiO2 Intake & Output 12/06/23 12/06/23 12/07/23 06:59 18:59 06:59 Intake Total 818 Output Total 250 Balance 568 Weight 87.2 kg 88.4 kg Intake: IV 700 Oral 118 Output: Urine 250 Other: Voiding Method Toilet # Voids 2 - Exam Patient is awake, alert and in no apparent distress. Patient indicates his pain is essentially absent/nonexistent. Patient indicates she has been ambulatory without issue and taking nutrition. Surgical wounds are clean, dry and otherwise unremarkable. Palpable femoral, popliteal and dorsalis pedis pulses are intact bilaterally. Legs are nontender and absent of edema. - Labs CBC & Chem 7: 12/06/23 13:47 12/06/23 13:47 Labs: Abnormal Lab Results - Last 24 Hours (Table) 12/06/23 12/06/23 12/06/23 Range/Units 10:20 10:43 13:47 Chloride 109 H (98-107) mmol/L BUN 32 H 27 H (9-20) mg/dL Creatinine 0.65 L (0.66-1.25) mg/dL Glucose 126 H 120 H (74-99) mg/dL POC Glucose (mg/dL) 122 H (70-110) mg/dL 12/06/23 12/06/23 12/07/23 Range/Units 13:49 20:09 05:46 Chloride (98-107) mmol/L BUN (9-20) mg/dL Creatinine (0.66-1.25) mg/dL Glucose (74-99) mg/dL POC Glucose (mg/dL) 115 H 158 H 119 H (70-110) mg/dL Assessment and Plan Assessment: Status post repair abdominal aortic aneurysm Plan: Patient is surgically stable for discharge and outpatient follow-up. Discharge instructions were reviewed with the patient. Time with Patient: Less than 30
[2023-12-07] MEDS: ASCORBIC ACID 500 MG TAB PO SCH (08:48)
[2023-12-07] MEDS: ASPIRIN 81 MG PO SCH (08:48)
[2023-12-07] MEDS: amLODIPine 5 MG TAB PO SCH (08:48)
[2023-12-07] MEDS: LOSARTAN-HCTZ 50-12.5 MG 1 EACH TAB PO SCH (08:49)
[2023-12-07] MEDS: CHOLECALCIFEROL 25 MCG (1000 IU) TABLET PO SCH (08:49)
[2023-12-07 09:42] VITALS: BP 101/56; PULSE 72; RESP 16; TEMP 98.1
[2023-12-07 10:17] LABS: African American GFR (CKD) >90 (>60 ml/min/1.73 sqM); Non-African American GFR(CKD) >90 (>60 ml/min/1.73 sqM)
== END 2023-12-07 10:25 | disposition home or self-care (01) | DRG 253 ==
LOC: 2ORMAIN 09:50 → 3SCARD 15:32
PROVIDERS: ADMIT Surgery; ATTEND Surgery
PROC: 04Q00ZZ Repair Abdominal Aorta, Open Approach (ICD-10-PCS; principal; 2023-12-06 11:30)
DX: I71.43 Infrarenal abdominal aortic aneurysm, without rupture (principal); I12.9 Hypertensive chronic kidney disease with stage 1 through stage 4 chronic kidney disease, or unspecified chronic kidney disease; K51.90 Ulcerative colitis, unspecified, without complications; Z86.79 Personal history of other diseases of the circulatory system; Z87.19 Personal history of other diseases of the digestive system; N18.30 Chronic kidney disease, stage 3 unspecified; E11.51 Type 2 diabetes mellitus with diabetic peripheral angiopathy without gangrene; Z87.891 Personal history of nicotine dependence
CPT/HCPCS: 80048; 80053; 82565; 84443; 85025; 86850; 86900; 86901

== ENCOUNTER → 2024-01-23 | Outpatient (CLI) | payer MEDICARE ==
[2024-01-23 10:59] LABS: African American GFR (CKD) >90 (>60 ml/min/1.73 sqM); Blood Urea Nitrogen 39 mg/dL (9-20); Non-African American GFR(CKD) 86 (>60 ml/min/1.73 sqM)
--- NOTE | 2024-01-23 12:23 | CT ---
CTA abdomen and pelvis with contrast. HISTORY: EVAR. COMPARISON: CT abdomen and pelvis 03/27/2023 TECHNIQUE: Multiple axial images are obtained through the abdomen and pelvis before and after the une ventful administration of nonionic IV contrast material. Exam was performed according to the [facility] protocol. FINDINGS: There is a tiny 2 to 3 mm nodule in the right lung base otherwise the lung bases are clear. There has been interval placement of an aortoiliac stent graft, EVAR. The [place] aneurysm is 5.4 weiss sverse by 5.6 AP. On the postcontrast images there is no evidence of an endoleak. There is no retrope ritoneal hemorrhage or adenopathy. The gallbladder is normal and there is no gallstone, wall thickening or pericholecystic fluid. There is a small hemangioma the left lobe of the liver. There is no focal mass or organomegaly in the pancreas, spleen and adrenal glands. There is no solid renal mass or hydronephrosis. There is a tiny 1 to 2 mm nonobstructing left renal c alcification and multiple nonobstructing right renal calcification largest of which is 8 mm. The bowel loops are normal in caliber. No dilatation or obstruction. No inflammatory changes are iden tified in the bowel wall and mesentery. There is no free intraperitoneal air or fluid. There are postsurgical changes of mesh repair for anterior abdominal hernia. There is no pelvic mass or adenopathy. There is moderate to marked prostatic hypertrophy with mild ce ntral calcification. The osseous structures are intact. IMPRESSION: 1. Satisfactory appearance of the aortoiliac stent graft with no evidence of endoleak. [place] aneurys m as described above. 2. Bilateral nonobstructing renal calcifications the largest is on the right measuring 8 mm. 3. Small hemangioma left lobe of the liver. 4. Mesh repair for abdominal hernia. 5. Small 2 to 3 mm right lower lobe pulmonary nodule. [facility], , 01/23/2024 12:21 PM
== END | disposition home or self-care (01) ==
LOC: RADCTMAIN 10:16
PROVIDERS: ATTEND Surgery
DX: I71.40 Abdominal aortic aneurysm, without rupture, unspecified
CPT/HCPCS: 36415; 74174; 82565; 84520

== ENCOUNTER → 2024-10-09 | Outpatient (CLI) | payer MEDICARE ==
--- NOTE | 2024-10-09 14:18 | CTL ---
EXAMINATION TYPE: CT Low Dose Lung DATE OF EXAM ORDERED: 10/09/2024 COMPARISON: CT Low Dose Lung 03/27/2023 CLINICAL INDICATION: Male, 73 years old with history of Z12.2, Z87.891 HISTORY OF NICOTINE DEPENDENCE ; PHH, Lung CA screening, Lung cancer screening, History of Smoking/tobacco use. TECHNIQUE: Low dose computed tomography scan was performed through the chest at 1 mm thick sections a nd reconstructed images in multiple planes at 1 mm and [address] DLP: [address] CTDI: 1.87 mGy Automated exposure control for dose reduction was used. CT DIAGNOSTIC QUALITY: Satisfactory FINDINGS: Nodules: Right upper lobe 3.4 mm calcified granuloma (series 8, image 15). Stable right lower lobe 2.0 mm calc ified granuloma (series 8, image 53). No new or enlarging pulmonary nodules. LUNGS: COPD: Severity: Mild Fibrosis: Severity: None Lymph nodes: None Other findings: None RIGHT PLEURAL SPACE: Effusion: None Calcification: None Thickening: None Pneumothorax: None LEFT PLEURAL SPACE: Effusion: None Calcification: None Thickening: None Pneumothorax: None HEART: Heart Size: Normal Coronary Calcification: Small Pericardial Effusion: None OTHER FINDINGS: Upper abdomen: Nonobstructing left renal 2.5 mm calculus. Partial visualization of abdominal aortic s tent graft beginning at the hiatus. Bony thorax: Bilateral shoulder arthropathy. DISH of the thoracic spine. Supraclavicular region: Enlarged right thyroid lobe redemonstrated. Other: Stable aneurysmal dilatation of the ascending thoracic aorta measuring up to 4.1 cm. IMPRESSION: 1. Couple small calcified granulomas. No clinically significant pulmonary nodule. 2. Mild emphysematous changes. 3. Stable aneurysmal dilatation of ascending thoracic aorta measuring up to 4.1 cm. 4. Nonobstructing left renal calculus. CT LUNG RAD AND CT CHEST RECOMMENDATION: Lung-Rad 2 Benign Appearance or Behavior: Continue annual sc reening with LDCT in 12 months. S Modifier (other clinically significant findings): None [facility], , 10/09/2024 2:16 PM
== END | disposition home or self-care (01) ==
LOC: RADCTMAIN 13:50
PROVIDERS: ATTEND Family Medicine
DX: Z12.2 Encounter for screening for malignant neoplasm of respiratory organs (principal); J84.10 Pulmonary fibrosis, unspecified; I71.21 Aneurysm of the ascending aorta, without rupture; N20.0 Calculus of kidney; J43.9 Emphysema, unspecified; Z87.891 Personal history of nicotine dependence
CPT/HCPCS: 71271